=== PATIENT | male | born 2000 | race Caucasian/White ===

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

== ENCOUNTER → 2021-08-12 20:00 | Outpatient (CLI) | payer BC, SELFPAY | PROVIDERS: Visit Provider Physician Assistant | DX: Z20.822 Contact with and (suspected) exposure to COVID-19 (principal); R69 Illness, unspecified | CPT/HCPCS: C9803; U0003; U0005 ==

== ENCOUNTER 2023-05-04 21:13 | Emergency (ER) | payer BC, SELFPAY ==
[2023-05-04 21:36] VITALS: BP 166/88; PULSE 80; RESP 18; TEMP 36.7; O2SAT 100; BMI 23.7
--- NOTE | 2023-05-04 21:39 | XR_ITS ---
PROCEDURE INFORMATION: Exam: XR Left Foot Exam date and time: 05/04/2023 10:09 PM Age: 22 years old Clinical indication: Injury or trauma; Blunt trauma; Toes; Left; Injury date: Today; Additional info: Crush injury to L great toe TECHNIQUE: Imaging protocol: Radiologic exam of the left foot. Views: 3 or more views. COMPARISON: No relevant prior studies available. FINDINGS: Bones/joints: No acute fracture or dislocation. Soft tissues: Normal. IMPRESSION: No acute fracture or dislocation.
--- NOTE | 2023-05-04 23:14 | HMH.EDLOEX ---
Discharge Plan Disposition Patient Disposition: Home, Self-Care Condition: Good Prescriptions Prescriptions: No Action fluticasone propionate [Flonase Allergy Relief] 50 mcg/actuation spray,suspension 1 spray INTRANASAL QDAY 30 Days Qty: 9.9 0RF Rx Instructions: administer into each nostril azithromycin 250 mg tablet See Rx Instructions PO .COMPLEX Qty: 6 0RF Rx Instructions: take 500 mg today (day 1), then 250 mg for 4 days (days 2-5) PO methylprednisolone [Medrol (Víctor)] 4 mg tablets,dose pack See Rx Instructions PO PER PKG DIR Qty: 21 0RF Rx Instructions: PO PER PKG DIR montelukast 10 mg tablet See Rx Instructions .ROUTE .COMPLEX Qty: 90 0RF Dose Instruction: TAKE ONE TABLET BY MOUTH AT BEDTIME Rx Instructions: TAKE ONE TABLET BY MOUTH AT BEDTIME acyclovir 5 % cream 1 applic TP 5XD 5 Days Qty: 5 0RF valacyclovir [Valtrex] 1 gram tablet 1,000 mg PO BID PRN (Reason: fever blister) Qty: 60 2RF amitriptyline 10 mg tablet See Rx Instructions .ROUTE .COMPLEX Qty: 90 0RF Dose Instruction: TAKE ONE TABLET BY MOUTH AT BEDTIME Rx Instructions: TAKE ONE TABLET BY MOUTH AT BEDTIME Referrals Follow up/Referrals: Kamilla Finley PA [Primary Care Provider] - See instructions Clinical Impressions Clinical Impression: Crushing injury of toe of left foot Instructions Patient Instructions: DI for Foot Sprain Discharge ED Provider: Hill (ED)Enmanuel Lower Extremity Injury HPI General Chief Complaint: Extremity Injury, Lower Stated Complaint: AO 05/04, left toe pain Time Seen by Provider: 05/04/23 23:00 Mode of Arrival: Ambulatory Source of Information: Patient, Parent(s) and Medical Record Limitations: No Limitations Description of Symptoms (Recalled from ER Triage Doc. by RN): pt states he was trying to reconect his tailgate to his truck when it fell on his foot around 0. pt presents with a crush injury to his L great toe the nail is dark purple and there is minimal bleeding around the nail. History of Present Illness HPI Narrative: dropped tailgate on lt foot and injured lt great toe MD complaint: foot injury Onset (ago): hour(s) Injury: Left: foot Type of Injury: blunt Place: home Severity: moderate Related Data Previous Rx's Medication Instructions Recorded fluticasone propionate 50 1 spray intranasal QDAY 30 days 08/12/21 mcg/actuation nasal #9.9 grams spray,suspension (Flonase Allergy Relief) azithromycin 250 mg tablet See Rx Instructions PO .COMPLEX #6 02/14/22 tabs methylprednisolone 4 mg tablets in See Rx Instructions PO PER PKG DIR 02/14/22 a dose pack (Medrol (Víctor)) #21 tabs acyclovir 5 % topical cream 1 applic topical 5XD 5 days #5 01/24/23 grams montelukast 10 mg tablet See Rx Instructions .Route 01/24/23 .COMPLEX #90 tabs valacyclovir 1 gram tablet 1,000 mg PO BID PRN fever blister 01/24/23 (Valtrex) #60 tabs amitriptyline 10 mg tablet See Rx Instructions .Route 04/12/23 .COMPLEX #90 tabs Allergies Allergy/AdvReac Type Severity Reaction Status Date / Time No Known Allergies Allergy Verified 02/14/22 16:15 [facility] Disclaimer: The information contained in this section may have been updated after the patient was seen, as this information can be updated by other users. Medical History (Updated 05/04/23 @ 23:30 by Babita Collins RN) Sinusitis Social History Smoking Status: Never smoker alcohol intake: current substance use type: denies use current occupational status: other Travel in the last 8 weeks: None household members: family housing: house ROS Obtained: Yes All systems reviewed & no additional complaints except as documented Physical Exam General General appearance: alert Head Head exam: normocephalic Eye Eye exam: Present PERRL and EOMI ENT ENT exam: Present mucous membranes moist Neck Neck exam: Present trachea midline Respirato
[2023-05-04 23:27] VITALS: BP 151/83; PULSE 82; RESP 16; TEMP 36.7
== END 2023-05-04 23:30 | disposition home or self-care (01) ==
PROVIDERS: Emergency Provider Emergency Medicine; PCP Physician Assistant
DX: S97.112A Crushing injury of left great toe, initial encounter (principal); W20.8XXA Other cause of strike by thrown, projected or falling object, initial encounter
CPT/HCPCS: 73630; 99283

== ENCOUNTER 2024-06-14 16:49 | Emergency (ER) | payer BC, SELFPAY ==
--- NOTE | 2024-06-14 16:58 | ED_ITS ---
Discharge Plan Disposition Patient Disposition: Home, Self-Care Condition: Good Prescriptions Prescriptions: New ondansetron 4 mg Tablet,Disintegrating 4 mg PO Q8H PRN (Reason: Nausea) Qty: 12 0RF No Action azithromycin 250 mg tablet See Rx Instructions PO .COMPLEX Qty: 6 0RF Rx Instructions: take 500 mg today (day 1), then 250 mg for 4 days (days 2-5) PO acyclovir 5 % cream 1 applic TP 5XD 5 Days Qty: 5 0RF amitriptyline 10 mg tablet See Rx Instructions .ROUTE .COMPLEX Qty: 90 0RF Dose Instruction: TAKE ONE TABLET BY MOUTH AT BEDTIME.. PATIENT NEEDS AN APPOINTMENT BEFORE ANYMORE REFILLS Rx Instructions: TAKE ONE TABLET BY MOUTH AT BEDTIME.. fluticasone propionate [Flonase Allergy Relief] 50 mcg/actuation spray,suspension 1 spray INTRANASAL QDAY 30 Days Qty: 9.9 0RF Rx Instructions: administer into each nostril methylprednisolone [Medrol (Víctor)] 4 mg tablets,dose pack See Rx Instructions PO PER PKG DIR Qty: 21 0RF Rx Instructions: PO PER PKG DIR montelukast 10 mg tablet See Rx Instructions .ROUTE .COMPLEX Qty: 90 0RF Dose Instruction: TAKE ONE TABLET BY MOUTH AT BEDTIME Rx Instructions: TAKE ONE TABLET BY MOUTH AT BEDTIME valacyclovir [Valtrex] 1 gram tablet 1,000 mg PO BID PRN (Reason: fever blister) Qty: 60 2RF Referrals Follow up/Referrals: Kamilla Finley PA [Primary Care Provider] - See instructions Activity Restrictions/Add. Instructions Additional Instructions/Restrictions: Drink plenty of fluids. Take tylenol or ibuprofen for pain or fever. Take the medications as directed. Follow up with your regular doctor. GO TO THE ER FOR ANY WORSENING SYMPTOMS Clinical Impressions Clinical Impression: Acute viral syndrome Stand Alone Forms Stand Alone Forms: Work/School Release Instructions Patient Instructions: DI for Viral Syndrome, Ondansetron Print Language Print Language: Mongolian Discharge ED Provider: Valerio Lloyd [facility] [place] General Stated complaint: diarrhea, abd pain Time Seen by Provider: 06/14/24 17:12 History of Present Illness Provider Complaint: He states that for the past 4 days he has had diarrhea, nausea, head aches, low grade fever, and malaise. His grandmother has similar symptoms at his home. Related Data Previous Rx's ?Medication ?Instructions ?Recorded azithromycin 250 mg tablet See Rx Instructions PO .COMPLEX #6 02/14/22 tabs acyclovir 5 % topical cream 1 applic topical 5XD 5 days #5 01/24/23 grams amitriptyline 10 mg tablet See Rx Instructions .Route 04/18/24 .COMPLEX #90 tabs fluticasone propionate 50 1 spray intranasal QDAY 30 days 04/18/24 mcg/actuation nasal #9.9 grams spray,suspension (Flonase Allergy Relief) methylprednisolone 4 mg tablets in See Rx Instructions PO PER PKG DIR 04/18/24 a dose pack (Medrol (Víctor)) #21 tabs montelukast 10 mg tablet See Rx Instructions .Route 04/18/24 .COMPLEX #90 tabs valacyclovir 1 gram tablet 1,000 mg PO BID PRN fever blister 04/18/24 (Valtrex) #60 tabs ondansetron 4 mg disintegrating 4 mg PO Q8H PRN Nausea #12 tabs 06/14/24 tablet Allergies Allergy/AdvReac Type Severity Reaction Status Date / Time No Known Allergies Allergy Verified 02/14/22 16:15 [facility] Disclaimer: The information contained in this section may have been updated after the patient was seen, as this information can be updated by other users. Medical History (Updated 06/14/24 @ 17:37 by Valerio Lloyd APRN) Sinusitis Social History Smoking Status: Never smoker alcohol intake: current alcohol intake frequency: holidays/special occasions only substance use type: denies use current occupational status: other Travel in the last 8 weeks: None household members: family housing: house ROS Obtained: Yes All systems reviewed & no additional complaints except as documented Constitutional Constitutional: Reports chills and Reports fever(s) Eyes Eyes: Denies eye discharge ENT Ears, Nose, Mouth, and Throat: Reports as per HPI Cardiovascular Cardiovascular: Denies chest pain Respiratory Respiratory: Denies chest congestion and Reports cough Gastrointestinal Gastrointestingal: Reports nausea; Denies abdominal pain, constipation, cramping, diarrhea or vomiting Musculoskeletal Musculoskeletal: Denies arthralgias Integumentary/Breasts Skin/Breast: Denies rash Neurologic Neurologic: Denies paresthesias Physical Exam General General appearance: alert and in no apparent distress Head Head exam: atraumatic, normocephalic and normal inspection Eye Eye exam: Present normal appearance, PERRL and EOMI ENT ENT exam: Present normal exam, normal oropharynx, mucous membranes moist, TM's normal bilaterally and normal external ear exam Neck Neck exam: Present normal inspection, full ROM and trachea midline; Absent meningismus or lymphadenopathy Chest Chest inspection: Present normal inspection and symmetric chest wall rise; Absent tenderness Respiratory Respiratory exam: Present normal lung sounds bilaterally; Absent respiratory distress Cardiovascular Cardiovascular exam: Present regular rate and normal rhythm; Absent JVD Abdominal Exam Abdominal exam: Present soft and normal bowel sounds; Absent distention, tenderness or guarding Extremities Exam Extremities exam: Present normal inspection, full ROM and normal capillary refill; Absent calf tenderness Back Exam Back exam: Present normal inspection; Absent tenderness Neurological Exam Neurological exam: Present alert and oriented X3 Psychiatric Psychiatric exam: Present normal affect and normal mood Skin Skin exam: Present warm, dry, intact and normal color Lymphatic Lymphatic Findings: no adenopathy Medical Decision Making Medical Records Medical records reviewed: No I reviewed the patient's medical records. Last Inquiry Pt receiving controlled substance: No Lab Data Lab results reviewed: Yes I reviewed the patient's lab results.
[2024-06-14 17:01] VITALS: BP 120/72; PULSE 108; RESP 16; TEMP 36.6; O2SAT 97; BMI 23.1
[2024-06-14 17:47] LABS: UTC Strep Screen (Rapid) Negative (Negative)
[2024-06-14 18:08] VITALS: BP 120/72; PULSE 108; RESP 16; TEMP 36.6; O2SAT 97
== END 2024-06-14 18:11 | disposition home or self-care (01) ==
PROVIDERS: Emergency Provider Nurse Practitioner Family; PCP Physician Assistant
DX: R51.9 Headache, unspecified (principal); R11.0 Nausea; R19.7 Diarrhea, unspecified; R50.9 Fever, unspecified; B34.9 Viral infection, unspecified
CPT/HCPCS: 87635; 87880; 99204; 99212; G0463

== ENCOUNTER 2024-06-17 22:13 | Emergency (ER) | payer BC, SELFPAY ==
[2024-06-17 22:14] VITALS: BP 147/91; PULSE 84; RESP 18; TEMP 36.9; O2SAT 96; BMI 23.1
--- NOTE | 2024-06-17 22:21 | CT_ITS ---
PROCEDURE INFORMATION: Exam: CT Abdomen And Pelvis With Contrast Exam date and time: 06/17/2024 11:20 PM Age: 24 years old Clinical indication: Other: Blood in stool; Additional info: Bright red blood per rectum TECHNIQUE: Imaging protocol: Computed tomography of the abdomen and pelvis with contrast. Radiation optimization: All CT scans at this facility use at least one of these dose optimization techniques: automated exposure control; mA and/or kV adjustment per patient size (includes targeted exams where dose is matched to clinical indication); or iterative reconstruction. Contrast material: ISOVUE; Contrast volume: 75 ml; Contrast route: IV; COMPARISON: No relevant prior studies available. FINDINGS: Lungs: Calcified granuloma right lung base otherwise lung bases are clear. Liver: Liver is unremarkable. No mass or enlargement detected. Gallbladder and biliary ducts: Gallbladder is contracted limiting its assessment. Bile ducts are not dilated. Pancreas: Unremarkable. Main pancreatic duct is not significantly dilated. Spleen: Normal. No splenomegaly. Adrenal glands: Normal. No mass. Kidneys and ureters: Kidneys are unremarkable. No calculi or hydronephrosis detected. Stomach and bowel: The distal colonic wall involving the sigmoid colon rectum appears mildly thickened with increased enhancement with some adjacent mesenteric vascular engorgement suspicious for distal segmental colitis. Adjacent pericolonic fat planes are preserved. Remainder of the GI tract is unremarkable. Appendix: No evidence of acute appendicitis. Intraperitoneal space: Unremarkable. No free air. No significant fluid collection. Vasculature: Unremarkable. No abdominal aortic aneurysm. Lymph nodes: Unremarkable. No enlarged lymph nodes. Urinary bladder: Unremarkable as visualized. Reproductive: Unremarkable as visualized. Bones/joints: Unremarkable. No acute fracture. Soft tissues: Unremarkable. IMPRESSION: Findings suspicious for mild segmental colitis involving the distal portion of the large bowel, possibly infectious in nature.
--- NOTE | 2024-06-17 22:21 | ED_ITS ---
<Statement entered by Pippa Young DO - 06/17/24 23:00> I was consulted by the AUBREY, and we discussed the complexity of the problems being addressed. I approved the treatment and management plan for this patient's care in the emergency department, thus performing a substantive portion of the medical decision making. Pippa Young DO Discharge Plan Disposition Patient Disposition: Home, Self-Care Prescriptions Prescriptions: New azithromycin 500 mg tablet 500 mg PO DAILY 7 Days Qty: 7 0RF No Action azithromycin 250 mg tablet See Rx Instructions PO .COMPLEX Qty: 6 0RF Rx Instructions: take 500 mg today (day 1), then 250 mg for 4 days (days 2-5) PO acyclovir 5 % cream 1 applic TP 5XD 5 Days Qty: 5 0RF amitriptyline 10 mg tablet See Rx Instructions .ROUTE .COMPLEX Qty: 90 0RF Dose Instruction: TAKE ONE TABLET BY MOUTH AT BEDTIME.. PATIENT NEEDS AN APPOINTMENT BEFORE ANYMORE REFILLS Rx Instructions: TAKE ONE TABLET BY MOUTH AT BEDTIME.. fluticasone propionate [Flonase Allergy Relief] 50 mcg/actuation spray,suspension 1 spray INTRANASAL QDAY 30 Days Qty: 9.9 0RF Rx Instructions: administer into each nostril methylprednisolone [Medrol (Víctor)] 4 mg tablets,dose pack See Rx Instructions PO PER PKG DIR Qty: 21 0RF Rx Instructions: PO PER PKG DIR montelukast 10 mg tablet See Rx Instructions .ROUTE .COMPLEX Qty: 90 0RF Dose Instruction: TAKE ONE TABLET BY MOUTH AT BEDTIME Rx Instructions: TAKE ONE TABLET BY MOUTH AT BEDTIME valacyclovir [Valtrex] 1 gram tablet 1,000 mg PO BID PRN (Reason: fever blister) Qty: 60 2RF ondansetron 4 mg Tablet,Disintegrating 4 mg PO Q8H PRN (Reason: Nausea) Qty: 12 0RF Referrals Follow up/Referrals: Kamilla Finley PA [Primary Care Provider] - See instructions Activity Restrictions/Add. Instructions Additional Instructions/Restrictions: Please follow-up with your primary care provider. Please return to the emergency department if you develop any new or worsening symptoms or become concerned for your health. Please take antibiotics as prescribed. Clinical Impressions Clinical Impression: Campylobacter enteritis, Dysentery Instructions Patient Instructions: DI for Diarrhea and Traveler's Diarrhea -- Adult Print Language Print Language: Greek Discharge ED Provider: Rober Acuna General Adult HPI <DEEPA Carlos - Last Filed: 06/17/24 22:56> General Chief complaint: Nausea/Vomiting/Diarrhea Stated complaint: blood in stool Time Seen by Provider: 06/17/24 22:20 History of Present Illness HPI narrative: Patient presents for evaluation of diarrhea and bright red blood per rectum. Patient reports an acute illness that began Monday of last week that led to nausea vomiting and multiple episodes of diarrhea. Patient was seen in the [facility] and only respiratory swabs were done the lab work and he was given Zofran. He did develop abdominal pain and cramping and then on Monday started having bright red blood when defecating. Patient states that the abdominal cramping has subsided and is now gone however he still has watery bloody diarrhea and immediately has to go as soon as he eats anything. He is not intolerant of oral intake currently. He denies fever chills hemoptysis hematemesis hematuria Related Data Previous Rx's ?Medication ?Instructions ?Recorded azithromycin 250 mg tablet See Rx Instructions PO .COMPLEX #6 02/14/22 tabs acyclovir 5 % topical cream 1 applic topical 5XD 5 days #5 01/24/23 grams amitriptyline 10 mg tablet See Rx Instructions .Route 04/18/24 .COMPLEX #90 tabs fluticasone propionate 50 1 spray intranasal QDAY 30 days 04/18/24 mcg/actuation nasal #9.9 grams spray,suspension (Flonase Allergy Relief) methylprednisolone 4 mg tablets in See Rx Instructions PO PER PKG DIR 04/18/24 a dose pack (Medrol (Víctor)) #21 tabs montelukast 10 mg tablet See Rx Instructions .Route 04/18/24 .COMPLEX #90 tabs valacyclovir 1 gram tablet 1,000 mg PO BID PRN fever blister 04/18/24 (Valtrex) #60 tabs ondansetron 4 mg disintegrating 4 mg PO Q8H PRN Nausea #12 tabs 06/14/24 tablet azithromycin 500 mg tablet 500 mg PO DAILY 7 days #7 tabs 06/18/24 Allergies Allergy/AdvReac Type Severity Reaction Status Date / Time No Known Allergies Allergy Verified 02/14/22 16:15 PFSH <DEEPA Carlos - Last Filed: 06/17/24 22:56> [facility] Disclaimer: The information contained in this section may have been updated after the patient was seen, as this information can be updated by other users. Medical History (Updated 06/18/24 @ 01:01 by Rober Acuna MD) Sinusitis Social History Smoking Status: Never smoker alcohol intake: current alcohol intake frequency: holidays/special occasions only substance use type: denies use current occupational status: other Travel in the last 8 weeks: None household members: family housing: house <DEEPA Carlos Last Filed: 06/17/24 22:56> ROS Obtained: Yes Systems reviewed as appropriate & no additional complaints except as documented Physical Exam <DEEPA Carlos Last Filed: 06/17/24 22:56> General General appearance: alert and in no apparent distress Head Head exam: atraumatic Eye Eye exam: Present normal appearance and EOMI ENT ENT exam: Present normal exam and normal oropharynx Neck Neck exam: Present normal inspection and full ROM Chest Chest inspection: Present normal inspection and symmetric chest wall rise Respiratory Respiratory exam: Present normal lung sounds bilaterally Cardiovascular Cardiovascular exam: Present regular rate and normal rhythm Abdominal Exam Abdominal exam: Present soft and normal bowel sounds; Absent tenderness, guarding, rebound or rigidity exam: Present deferred Extremities Exam Extremities exam: Present normal inspection and full ROM Back Exam Back exam: Present normal inspection and full ROM; Absent tenderness Neurological Exam Neurological exam: Present alert and oriented X3 Psychiatric Psychiatric exam: Present normal affect and normal mood Skin Skin exam: Present warm, dry and normal color Medical Decision Making <DEEPA Carlos Last Filed: 06/17/24 22:56> Medical Records Medical records reviewed: Yes I reviewed the patient's medical records. Last Inquiry Pt receiving controlled substance: No Vital Signs: 06/17/24 22:14 06/17/24 23:01 06/17/24 23:30 Temperature 98.5 F Temperature Source Oral Pulse Rate 81 80 Pulse Rate [Left Radial] 84 Respiratory Rate 18 Blood Pressure 138/83 151/94 H Blood Pressure [Right Arm] 147/91 H Blood Pressure Mean 101 113 Blood Pressure Mean [Right Arm] 109 Blood Pressure Source Blood Pressure Source [Right Arm] Automatic Cuff Blood Pressure Position Blood Pressure Position [Right Arm] Sitting 02 Sat by Pulse Oximetry 96 100 100 Oxygen Delivery Method Room Air 06/18/24 00:00 06/18/24 01:07 Temperature 98.2 F Temperature Source Oral Pulse Rate 80 Pulse Rate [Left Radial] Respiratory Rate 16 Blood Pressure 140/82 138/82 Blood Pressure [Right Arm] Blood Pressure Mean 101 Blood Pressure Mean [Right Arm] Blood Pressure Source Automatic Cuff Blood Pressure Source [Right Arm] Blood Pressure Position Sitting Blood Pressure Position [Right Arm] 02 Sat by Pulse Oximetry 100 Oxygen Delivery Method Room Air Lab Data Lab results reviewed: Yes I reviewed the patient's lab results. Lab Results 06/17/24 22:25: Stool Occult Blood Positive A, Stl Aeromonas (PCR) Not detected, Stl C. cayetanensis PCR Not detected, Stool Rotavirus (PCR) Not detected, Stl Adenov F 40/41 PCR Not detected, Stool Astrovirus (PCR) Not detected, Stool Campylobacter PCR Detected A, Stl C.difficile Tox PCR Not detected, Stool Cryptosporidium PCR Not detected, Stl E.coli Shiga Tox PCR Not detected, Stool E coli O157 PCR Not detected, Stl Enterotoxigenic E PCR Not detected, Stool EPEC (PCR) Not detected, Stool EAEC (PCR) Not detected, Stl E. histolytica PCR Not detected, Stool Giardia Lamblia PCR Not detected, Stool Salmonella PCR Not detected, Stool Sapovirus (PCR) Not detected, Stl P. shigelloides PCR Not detected, Stl Shigella/EIEC PCR Not detected, St Y.enterocolitica PCR Not detected, Stool Vibrio (PCR) Not detected, Stl Vibrio cholerae PCR Not detected, Stl Norovirus GI/GII PCR Not detected 06/17/24 22:34: WBC 5.8, RBC 4.09 L, Hgb 13.2 L, Hct 37.2 L, MCV 91.0, MCH 32.3 H, MCHC 35.5 H, RDW 13.1, Plt Count 295, MPV 7.6, Neut % (Auto) 51.4, Lymph % (Auto) 32.4, [place] % (Auto) 11.7 H, Eos % (Auto) 2.3, Baso % (Auto) 2.1 H, Neut # (Auto) 3.0, Lymph # (Auto) 1.9, [place] # (Auto) 0.7, Eos # (Auto) 0.1, Baso # (Auto) 0.1, Sodium 140, Potassium 3.7, Chloride 103, Carbon Dioxide 30, Anion Gap 10.7, BUN 12, Creatinine 1.20, Estimated Creat Clear 114, Estimated GFR 75, Est GFR ( Amer) 91, Glucose 69 L, Lactate 1.1, Calcium 9.0, Magnesium 1.9, Total Bilirubin 0.3, AST 30, ALT 20, Alkaline Phosphatase 53, Total Protein 6.5, Albumin 3.5, Globulin 3.0, Albumin/Globulin Ratio 1.2 06/17/24 22:34 06/17/24 22:34 Orders (Tests/Meds): ED MEDICATIONS Discontinued Medications Generic Name Dose Route Start Last Admin Trade Name Freq PRN Reason Stop Dose Admin Azithromycin 500 mg 06/18/24 00:52 06/18/24 00:56 Azithromycin 250mg Tablet PO 06/18/24 00:53 500 mg ONCE ONE Administration Lactated Ringer's 1,000 mls @ 999 mls/hr 06/17/24 22:21 06/17/24 22:38 Lactated Ringer's 1000 Ml Bag IV 06/17/24 23:21 999 mls/hr .Q1H1M ONE Administration Iopamidol 75 ml 06/17/24 23:23 06/17/24 23:24 Iopamidol-370 (76%);100ml Bottle IV 06/17/24 23:24 75 ml ONCE ONE Administration Sodium Chloride 10 ml 06/17/24 23:23 06/17/24 23:24 Sodium Chloride 0.9% 10ml Syr (Rad Only) IV 07/17/24 23:22 10 ml NEEDED PRN Administration Maintain IV Site ORDERS Category Date Time Status CT abdomen pelvis w con Stat Cat Scan 06/17/24 22:21 Completed CBC w/Auto Diff [Complete Blood Count Auto Diff] Stat Lab 06/17/24 22:34 Completed CMP [Comprehensive Metabolic Panel] Stat Lab 06/17/24 22:34 Completed Diarrhea 23 Panel, PCR Stat Lab 06/17/24 22:25 Completed Lactic Acid Stat Lab 06/17/24 22:34 Completed Magnesium Stat Lab 06/17/24 22:34 Completed Occult Blood,Stool Stat Lab 06/17/24 22:25 Completed Medical Decision Narrative: In summary patient is a 24-year-old male who presents to the emergency department for evaluation of diarrhea and bright red blood per rectum. Patient is hemodynamically stable upon arrival, afebrile. Physical exam is unremarkable and nonfocal including no abdominal pain normal bowel sounds no rebound or guarding or rigidity. Rectal was deferred and lieu of stool specimen which patient was able to provide. He provided a specimen of watery blood-tinged liquid with no solid stool noted. Differential diagnosis includes infectious gastroenteritis versus bowel ischemia versus ulcerative colitis versus Crohn's versus other inflammatory colitis etc. Initial workup will be conducted with hematologic labs diarrhea panel CT scan abdomen pelvis with contrast. Initial interventions include crystalloid bolus. Initial workup is pending at the time of handoff to Dr. Acuna at 2300 hrs. <Rober Acuna MD - Last Filed: 06/18/24 02:23> Vital Signs: 06/17/24 22:14 06/17/24 23:01 06/17/24 23:30 Temperature 98.5 F Temperature Source Oral Pulse Rate 81 80 Pulse Rate [Left Radial] 84 Respiratory Rate 18 Blood Pressure 138/83 151/94 H Blood Pressure [Right Arm] 147/91 H Blood Pressure Mean 101 113 Blood Pressure Mean [Right Arm] 109 Blood Pressure Source Blood Pressure Source [Right Arm] Automatic Cuff Blood Pressure Position Blood Pressure Position [Right Arm] Sitting 02 Sat by Pulse Oximetry 96 100 100 Oxygen Delivery Method Room Air 06/18/24 00:00 06/18/24 01:07 Temperature 98.2 F Temperature Source Oral Pulse Rate 80 Pulse Rate [Left Radial] Respiratory Rate 16 Blood Pressure 140/82 138/82 Blood Pressure [Right Arm] Blood Pressure Mean 101 Blood Pressure Mean [Right Arm] Blood Pressure Source Automatic Cuff Blood Pressure Source [Right Arm] Blood Pressure Position Sitting Blood Pressure Position [Right Arm] 02 Sat by Pulse Oximetry 100 Oxygen Delivery Method Room Air Lab Data Lab Results 06/17/24 22:25: Stool Occult Blood Positive A, Stl Aeromonas (PCR) Not detected, Stl C. cayetanensis PCR Not detected, Stool Rotavirus (PCR) Not detected, Stl Adenov F 40/41 PCR Not detected, Stool Astrovirus (PCR) Not detected, Stool Campylobacter PCR Detected A, Stl C.difficile Tox PCR Not detected, Stool Cryptosporidium PCR Not detected, Stl E.coli Shiga Tox PCR Not detected, Stool E coli O157 PCR Not detected, Stl Enterotoxigenic E PCR Not detected, Stool EPEC (PCR) Not detected, Stool EAEC (PCR) Not detected, Stl E. histolytica PCR Not detected, Stool Giardia Lamblia PCR Not detected, Stool Salmonella PCR Not detected, Stool Sapovirus (PCR) Not detected, Stl P. shigelloides PCR Not detected, Stl Shigella/EIEC PCR Not detected, St Y.enterocolitica PCR Not detected, Stool Vibrio (PCR) Not detected, Stl Vibrio cholerae PCR Not detected, Stl Norovirus GI/GII PCR Not detected 06/17/24 22:34: WBC 5.8, RBC 4.09 L, Hgb 13.2 L, Hct 37.2 L, MCV 91.0, MCH 32.3 H, MCHC 35.5 H, RDW 13.1, Plt Count 295, MPV 7.6, Neut % (Auto) 51.4, Lymph % (Auto) 32.4, [place] % (Auto) 11.7 H, Eos % (Auto) 2.3, Baso % (Auto) 2.1 H, Neut # (Auto) 3.0, Lymph # (Auto) 1.9, [place] # (Auto) 0.7, Eos # (Auto) 0.1, Baso # (Auto) 0.1, Sodium 140, Potassium 3.7, Chloride 103, Carbon Dioxide 30, Anion Gap 10.7, BUN 12, Creatinine 1.20, Estimated Creat Clear 114, Estimated GFR 75, Est GFR ( Amer) 91, Glucose 69 L, Lactate 1.1, Calcium 9.0, Magnesium 1.9, Total Bilirubin 0.3, AST 30, ALT 20, Alkaline Phosphatase 53, Total Protein 6.5, Albumin 3.5, Globulin 3.0, Albumin/Globulin Ratio 1.2 Orders (Tests/Meds): ED MEDICATIONS Discontinued Medications Generic Name Dose Route Start Last Admin Trade Name Freq PRN Reason Stop Dose Admin Azithromycin 500 mg 06/18/24 00:52 06/18/24 00:56 Azithromycin 250mg Tablet PO 06/18/24 00:53 500 mg ONCE ONE Administration Lactated Ringer's 1,000 mls @ 999 mls/hr 06/17/24 22:21 06/17/24 22:38 Lactated Ringer's 1000 Ml Bag IV 06/17/24 23:21 999 mls/hr .Q1H1M ONE Administration Iopamidol 75 ml 06/17/24 23:23 06/17/24 23:24 Iopamidol-370 (76%);100ml Bottle IV 06/17/24 23:24 75 ml ONCE ONE Administration Sodium Chloride 10 ml 06/17/24 23:23 06/17/24 23:24 Sodium Chloride 0.9% 10ml Syr (Rad Only) IV 07/17/24 23:22 10 ml NEEDED PRN Administration Maintain IV Site ORDERS Category Date Time Status CT abdomen pelvis w con Stat Cat Scan 06/17/24 22:21 Completed CBC w/Auto Diff [Complete Blood Count Auto Diff] Stat Lab 06/17/24 22:34 Completed CMP [Comprehensive Metabolic Panel] Stat Lab 06/17/24 22:34 Completed Diarrhea 23 Panel, PCR Stat Lab 06/17/24 22:25 Completed Lactic Acid Stat Lab 06/17/24 22:34 Completed Magnesium Stat Lab 06/17/24 22:34 Completed Occult Blood,Stool Stat Lab 06/17/24 22:25 Completed Medical Decision Narrative: In summary patient is a 24-year-old male who presents to the emergency department for evaluation of diarrhea and bright red blood per rectum. Patient is hemodynamically stable upon arrival, afebrile. Physical exam is unremarkable and nonfocal including no abdominal pain normal bowel sounds no rebound or guarding or rigidity. Rectal was deferred and lieu of stool specimen which patient was able to provide. He provided a specimen of watery blood-tinged liquid with no solid stool noted. Differential diagnosis includes infectious gastroenteritis versus bowel ischemia versus ulcerative colitis versus Crohn's versus other inflammatory colitis etc. Initial workup will be conducted with hematologic labs diarrhea panel CT scan abdomen pelvis with contrast. Initial interventions include crystalloid bolus. Initial workup is pending at the time of handoff to Dr. Acuna at 2300 hrs. Kalpana RAE: I assumed care of the patient at the time of handoff from the prior provider. On reassessment patient reports symptomatic resolution. CT imaging is interpreted by me and shows short segment colitis without abscess or other complication. Diarrhea panel shows Campylobacter infection. Extensive discussion was had with the patient regarding his presentation. Presentation is consistent with Campylobacter dysentery. Given duration of symptoms and evidence of inflammation on CT, we will treat with course of p.o. azithromycin. Patient was given return precautions and discharged in stable condition. Critical Care <DEEPA Carlos - Last Filed: 06/17/24 22:56> Critical Care Time Critical Care Time: No
[2024-06-17 22:30] LABS: Adenovirus F 40/41, stool Not Detected (NotDetected); Astrovirus Not Detected (NotDetected); Clostridium Difficile A/B, PCR Not Detected (NotDetected); Cryptosporidium Not Detected (NotDetected); Cyclospora Cayetanesis Not Detected (NotDetected); Entamoeba histolytica Not Detected (NotDetected); Enteroaggregative E coli Not Detected (NotDetected); Enteropathogenic E coli Not Detected (NotDetected); Enterotoxigenic E coli Not Detected (NotDetected); Giardia lamblia Not Detected (NotDetected); Norovirus Not Detected (NotDetected); Plesimonas Shigalloides, PCR Not Detected (NotDetected); Rotavirus A Not Detected (NotDetected); Salmonella, PCR Not Detected (NotDetected); Sapovirus Not Detected (NotDetected); Shiga-like toxin E coli Not Detected (NotDetected); Shigella Enterovasive E coli Not Detected (NotDetected); Vibrio Cholerae Not Detected (NotDetected); Vibrio, PCR Not Detected (NotDetected); Yersinia Entercolitica, PCR Not Detected (NotDetected)
[2024-06-17] MEDS: LACTATED RINGERS 1000ML 1,000 ML 999 ML IV (22:38)
[2024-06-17 22:43] LABS: Basophils # 0.1 K/mm3 (0-0.2); Basophils % 2.1 % (0.1-2.0); Eosinophils # 0.1 K/mm3 (0.0-0.4); Eosinophils % 2.3 % (0.1-12.0); Hematocrit 37.2 % (42.0-52.0); Hemoglobin 13.2 g/dL (14.1-18.0); Lymphocytes # 1.9 K/mm3 (0.7-4.5); Lymphocytes % 32.4 % (10-50); Mean Corpuscular HGB Conc 35.5 g/dL (31.8-35.4); Mean Corpuscular Hemoglobin 32.3 pg (27.0-31.2); Mean Platelet Volume 7.6 fl (7.4-10.4); Monocytes # 0.7 K/mm3 (0.1-1.0); Monocytes % 11.7 % (1.7-9.3); Neutrophils % 51.4 % (37.0-80.0); Platelet Count 295 K/mm3 (142-424); Red Blood Count 4.09 M/mm3 (4.60-6.20); Red Cell Distribution Width 13.1 % (11.5-17.5); White Blood Count 5.8 K/mm3 (4.8-10.8)
[2024-06-17 22:55] LABS: Occult Blood,Stool Positive (Negative)
[2024-06-17 22:55] LABS: Alanine Aminotransferase 20 U/L (12-78); Albumin Level 3.5 g/dl (3.5-5.0); Albumin/Globulin Ratio 1.2 (1.1-1.8); Alkaline Phosphatase 53 U/L (38-126); Anion Gap 10.7 mEq/L (5-15); Aspartate Amino Transferase 30 U/L (17-59); Bilirubin,Total 0.3 mg/dl (0.2-1.3); Blood Urea Nitrogen 12 mg/dl (9-20); Carbon Dioxide 30 mmol/L (22.0-30.0); Chloride 103 mmol/L (98-107); Creatinine Clearance Estimated 114 mL/min (50-200); Estimated Glomerular Filt Rate 75 ml/min (>60); GFR (African American) 91 ML/MIN (>60); Glucose 69 mg/dl (74-100); Lactic Acid 1.1 mmol/L (0.7-2.1); Potassium 3.7 mmoL/L (3.5-5.1); Sodium 140 mmol/L (136-145); Total Protein,Serum 6.5 g/dl (6.3-8.2)
[2024-06-17 23:01] VITALS: BP 138/83; PULSE 81; O2SAT 100
[2024-06-17 23:15] LABS: Magnesium 1.9 mg/dl (1.6-2.3)
[2024-06-17] MEDS: IOPAMIDOL-370 (76%);100ML BOTTLE 75 ML IV (23:24)
[2024-06-17] MEDS: SODIUM CHLORIDE 0.9% 10ML SYR (RAD ONLY) 10 ML IV (23:24)
[2024-06-17 23:30] VITALS: BP 151/94; PULSE 80; O2SAT 100
[2024-06-18] VITALS: BP 140/82; O2SAT 100
[2024-06-18 00:48] LABS: Campylobacter Detected (NotDetected)
[2024-06-18] MEDS: AZITHROMYCIN 250MG TABLET 500 MG PO (00:56)
[2024-06-18 01:07] VITALS: BP 138/82; PULSE 80; RESP 16; TEMP 36.8; O2SAT 98
== END 2024-06-18 01:08 | disposition home or self-care (01) ==
PROVIDERS: Physician Assistant; Emergency Provider Emergency Medicine; PCP Physician Assistant
DX: A04.5 Campylobacter enteritis (principal); K92.1 Melena
CPT/HCPCS: 74177; 80053; 82272; 83605; 83735; 85025; 87507; 96360; 99284; G0328; J7120; Q9967

== ENCOUNTER 2025-05-29 12:13 | Outpatient (CLI) | payer BC, SELFPAY ==
[2025-05-29 12:15] LABS: Adenovirus F 40/41, stool Not Detected (NotDetected); Clostridium Difficile A/B, PCR Not Detected (NotDetected); Cyclospora Cayetanesis Not Detected (NotDetected); Plesimonas Shigalloides, PCR Not Detected (NotDetected); Salmonella, PCR Not Detected (NotDetected); Shiga-like toxin E coli Not Detected (NotDetected); Vibrio, PCR Not Detected (NotDetected); Yersinia Entercolitica, PCR Not Detected (NotDetected)
--- OUTSIDE RECORDS SUMMARY | 2025-05-29 12:15 | XMS_ITS | Clinical Summary ---
Author Organization Healthcare Address [address] [place] [address] Care Team Providers Care Window Treatment Installer Name Role Phone Patricia Eugene MD Primary Care Provider Family History Medical History Relation Name Comments Marfan syndrome Other Marfan syndrome Paternal Cousin Relation Name Status Comments Other Paternal Cousin Social History Tobacco Use Types Packs/Day Years Used Date Smoking Tobacco: Passive Smo ke Exposure - Never Smoker Sex and Gender Information Value Date Recorded Sex Assigned at Not on file Legal Sex Male 6:18 PM EDT Gender Identity Not on file Sexual Orientation Not on file Last Filed Vital Signs Vital Sign Reading Time Taken Comments Blood Pressure - - Pulse - - Temperature - - Respiratory Rate - - Oxygen Saturation - - Inhaled Oxygen Concentration - - Weight 54.2 kg (119 lb 7.8 oz) 08/14/2014 9:45 A M EDT Height 168 cm (5' 6.14 ) 08/14/2014 9:45 AM EDT Body Mass Index 19.2 08/14/2014 9:45 AM EDT Plan of Treatment Not on file Care Teams Window Treatment Installer Relationship Specialty Start Date End Date Patricia Eugene MD [facility] [place] [address] PCP - General 04/02/21
[2025-05-29 17:20] LABS: Shigella Enterovasive E coli Detected (NotDetected)
== END 2025-05-29 23:59 | disposition home or self-care (01) ==
LOC: LAB 12:14
PROVIDERS: PCP Physician Assistant; Visit Provider Student in an Organized Health Care Education/Training Program
DX: R19.7 Diarrhea, unspecified (principal)
CPT/HCPCS: 87507